=== PATIENT | female | born 1995 | race Hispanic/Latino ===

== ENCOUNTER 2024-03-10 12:50 | Emergency (ER) | payer OTHER, SELFPAY ==
[2024-03-10 12:55] VITALS: BP 114/66; PULSE 88; RESP 16; TEMP 36.9; O2SAT 99; BMI 34.9
[2024-03-10] MEDS: ONDANSETRON 4 MG/2 ML INJ IV (13:28)
[2024-03-10 13:31] LABS: Add Manual Diff / Slide Review NO; Basophils Absolute Auto 0 /uL (0-100); Basophils Percent Auto 0.4 % (0-2); Eosinophils Absolute Auto 100 /uL (0-450); Eosinophils Percent Auto 0.6 % (2-4); Hemoglobin 13.2 g/dL (12.0-16.0); Lymphocytes Absolute Auto 1400 /uL (1100-4500); Mean Corpuscular HGB Conc 33.8 % (30-36); Mean Corpuscular Hemoglobin 29.6 PG (26-34); Mean Corpuscular Volume 87.4 fL (80-100); Monocytes Absolute Auto 700 /uL (0-900); Monocytes Percent Auto 6.8 % (3-14); Neutrophils Absolute Auto 8700 /uL (1500-7000); Neutrophils Percent Auto 79.2 % (50-75); Platelet Count 352 X10^3/uL (150-400); Red Blood Cell Count 4.46 X10^6/uL (4.0-5.2); Red Cell Distribution Width 13.6 % (11.6-14.8)
[2024-03-10 13:34] LABS: Ictotest Urine Negative (Negative)
[2024-03-10 13:42] LABS: Alanine Aminotransferase 22 IU/L (<35); Albumin 4.5 g/dL (3.5-5.0); Albumin Globulin Ratio 1.4 (1.0-2.8); Alkaline Phosphatase 75 U/L (38-126); Aspartate Aminotransferase 24 IU/L (14-36); Bilirubin Total 1.1 mg/dL (0.2-1.3); Blood Urea Nitrogen 15 mg/dL (7-17); Carbon Dioxide 22 mmol/L (22-32); Chloride 106 mmol/L (98-107); Estimated Glomerular Filt Rate > 60 mL/min (>60); Globulin 3.3 g/dL (1.7-4.1); Glucose 100 mg/dL (70-100); HEMOLYSIS < 15 (0-50); Lipase 29 U/L (23-300); Potassium 3.5 mmol/L (3.4-5.1); Sodium 137 mmol/L (137-145); Total Protein 7.8 g/dL (6.3-8.2)
[2024-03-10 13:49] LABS: Bacteria Urine Occasional (0-1); Culture Indicated Urine Cult Not Indicated; Mucus Urine 1+ (Negative); RBC Urine 1-5/HPF (0-5/HPF); Squamous Epithelial Cell Urine 1-5 /HPF (0-5/HPF); Urine Volume 10mL (spun); WBC Urine 1-5/HPF (0-5/HPF)
[2024-03-10 15:30] VITALS: BP 107/72; PULSE 80; RESP 18; O2SAT 99
--- NOTE | 2024-03-23 13:43 | ED_ITS ---
HPI - Nausea/Vomiting/Diarrhea <Manjula Reyes PA-C - Last Filed: 03/23/24 14:23> General Chief complaint: Nausea/Vomiting/Diarrhea Stated complaint: Vomiting, chills, body aches Time Seen by Provider: 03/10/24 15:06 Source: patient Mode of arrival: Family Vehicle History of Present Illness HPI Narrative: 28-year-old female presents to the ED with 1 day of abdominal pain, nausea, vomiting, body aches. Patient states that she had some food from [facility] last night, following which the symptoms started. Patient denies fever, chest pain, shortness of breath, dysuria, lightheadedness, dizziness, syncope. Related Data Previous Rx's Medication Instructions Recorded ondansetron 4 mg disintegrating 4 mg PO Q8H PRN nausea and 03/10/24 tablet vomiting #10 tabs Allergies Allergy/AdvReac Type Severity Reaction Status Date / Time No Known Drug Allergies Allergy Verified 03/10/24 13:25 Review of Systems <Manjula Reyes PA-C - Last Filed: 03/23/24 14:23> Constitutional Constitutional: Reports chills, Denies fatigue, Denies fever(s), Denies frequent falls, Denies lethargy and Denies weakness Eyes Eyes: Denies change in vision, Denies eye discharge, Denies irritation and Denies loss of vision ENT Ears, Nose, Mouth, and Throat: Denies change in voice, Denies dizziness, Denies neck pain, Denies sore throat and Denies throat swelling Cardiovascular Cardiovascular: Denies chest pain, Denies irregular heart rhythm, Denies lightheadedness, Denies palpitations, Denies dyspnea, Denies dyspnea on exertion and Denies orthopnea Respiratory Respiratory: Denies cough, Denies dyspnea, Denies dyspnea on exertion and Denies wheezing Gastrointestinal Gastrointestinal: Reports abdominal pain, Denies change in bowel habits, Denies diarrhea, Reports nausea and Reports vomiting Musculoskeletal Musculoskeletal: Denies neck pain and Denies numbness Integumentary/Breasts Skin/Breast: Denies pruritus, Denies erythema, Denies rash and Denies wounds Neurologic Neurologic: Denies behavioral changes, Denies confusion, Denies dizziness, Denies frequent falls, Denies loss of vision, Denies numbness and Denies weakness Psychiatric Psychiatric: Denies anxiety, Denies behavioral changes, Denies confusion, Denies depression, Denies homicidal ideation and Denies suicidal ideation Endocrine Endocrine: Denies fatigue, Denies flushing and Denies palpitations Hematologic/Lymphatic Hematologic/Lymphatic: Denies easy bruising Allergic/Immunologic Allergic/Immunologic: Denies urticaria, Denies throat swelling and Denies wheezing Exam <Manjula Reyes PA-C - Last Filed: 03/23/24 14:23> Narrative Exam Narrative: Const General:?cooperative, healthy appearing and comfortable [facility] Head:?normal to inspection Ears:?hearing grossly normal bilaterally Nose:?external nose normal Face and sinus:?normal facial exam and sinuses nontender Mouth:?oral mucosae normal Throat:?posterior oropharynx normal Eyes General:?appearance normal, both eyes and all related structures Neck Neck:?normal visual inspection and no lymphadenopathy noted Resp Effort & Inspection:?normal respiratory effort Auscultation:?clear to auscultation bilaterally Cardio Rate:?regular rate Rhythm:?regular rhythm GI Abdomen is soft, nondistended, nontender to palpation. Neuro General:?patient alert, patient awake and patient oriented x3 Initial Vital Signs Initial Vital Signs: Vital Signs Temperature 98.5 F 03/10/24 12:55 Pulse Rate 88 03/10/24 12:55 Respiratory Rate 16 03/10/24 12:55 Blood Pressure 114/66 03/10/24 12:55 Pulse Oximetry 99 03/10/24 12:55 Oxygen Delivery Method Room Air 03/10/24 12:55 <Marga Wadsworth DO - Last Filed: 03/25/24 07:15> Initial Vital Signs Initial Vital Signs: Vital Signs Temperature 98.5 F 03/10/24 12:55 Pulse Rate 88 03/10/24 12:55 Respiratory Rate 16 03/10/24 12:55 Blood Pressure 114/66 03/10/24 12:55 Pulse Oximetry 99 03/10/24 12:55 Oxygen Delivery Method Room Air 03/10/24 12:55 Course <Manjula Reyes PA-C - Last Filed: 03/23/24 14:23> Orders Ordered: Discontinued Medications Ondansetron HCl (Ondansetron 4 Mg/2 Ml Inj) 4 mg IV NOW PRN PRN Reason: Nausea And Vomiting Last Admin: 03/10/24 13:28 Dose: 4 mg Documented By: SB Ondansetron HCl (Ondansetron 4 Mg Odt) 4 mg PO NOW PRN PRN Reason: Nausea And Vomiting <Marga Wadsworth DO - Last Filed: 03/25/24 07:15> Orders Ordered: Discontinued Medications Ondansetron HCl (Ondansetron 4 Mg/2 Ml Inj) 4 mg IV NOW PRN PRN Reason: Nausea And Vomiting Last Admin: 03/10/24 13:28 Dose: 4 mg Documented By: SB Ondansetron HCl (Ondansetron 4 Mg Odt) 4 mg PO NOW PRN PRN Reason: Nausea And Vomiting MDM - Nausea/Vomiting/Diarrhea <Manjula Reyes PA-C - Last Filed: 03/23/24 14:23> Lab Data 03/10/24 13:15 03/10/24 13:15 Labs: Lab Results 03/10/24 03/10/24 Range/Units 13:10 13:15 WBC 11.0 (4.5-11.0) X10^3/uL RBC 4.46 (4.0-5.2) X10^6/uL Hgb 13.2 (12.0-16.0) g/dL Hct 39.0 (36-46) % MCV 87.4 (80-100) fL MCH 29.6 (26-34) PG MCHC 33.8 (30-36) % RDW 13.6 (11.6-14.8) % Plt Count 352 (150-400) X10^3/uL Neut % (Auto) 79.2 H (50-75) % Lymph % (Auto) 13.0 L (25-40) % [place] % (Auto) 6.8 (3-14) % Eos % (Auto) 0.6 L (2-4) % Baso % (Auto) 0.4 (0-2) % Neut # (Auto) 8700 H (1752-4175) /uL Lymph # (Auto) 1400 (4305-4135) /uL [place] # (Auto) 700 (0-900) /uL Eos # (Auto) 100 (0-450) /uL Baso # (Auto) 0 (0-100) /uL Sodium 137 (137-145) mmol/L Potassium 3.5 (3.4-5.1) mmol/L Chloride 106 (98-107) mmol/L Carbon Dioxide 22 (22-32) mmol/L BUN 15 (7-17) mg/dL Creatinine 0.60 (0.52-1.04) mg/dL Estimated GFR > 60 (>60) mL/min BUN/Creatinine Ratio 25.0 H (6-22) Glucose 100 (70-100) mg/dL Calcium 9.0 (8.4-10.2) mg/dL Total Bilirubin 1.1 (0.2-1.3) mg/dL AST 24 (14-36) IU/L ALT 22 (<35) IU/L Alkaline Phosphatase 75 (38-126) U/L Total Protein 7.8 (6.3-8.2) g/dL Albumin 4.5 (3.5-5.0) g/dL Globulin 3.3 (1.7-4.1) g/dL Albumin/Globulin Ratio 1.4 (1.0-2.8) Lipase 29 (23-300) U/L Ur Bilirubin Confirm Negative (Negative) Urine RBC 1-5/hpf (0-5/HPF) Urine WBC 1-5/hpf (0-5/HPF) Ur Squamous Epith Cells 1-5 /hpf (0-5/HPF) Urine Bacteria Occasional (0-1) (None) Urine Mucus 1+ H (Negative) Ur Culture Indicated? Cult not indicated Vol Urine Centrifuged 10ml (spun) Point of Care Testing Test Results Negative Urine Dip Bedside Urine Glucose Negative Bedside Urine Bilirubin + 1 Bedside Urine Ketone +/- 5 Urine Specific [place] 1.025 Bedside Urine Occult Blood - Negative Bedside Urine pH 6.0 Bedside Urine Protein +/- 15 Bedside Urine Urobilinogen - Negative Bedside Urine Nitrite - Negative Bedside Urine Leukocytes + 70 Esterase MDM Narrative Medical decision making narrative: 28-year-old female presents to the ED with 1 day of abdominal pain, nausea, vomiting, body aches. Labs within normal limits. Urine is negative. UA shows positive leuks, however patient is not symptomatic. Patient's symptoms most consistent with gastroenteritis. Patient's nausea responded well to Zofran. Recommend patient continue Zofran as needed at home. Recommend good hydration. Brat diet if diarrhea. Recommend follow-up with PCP. ED return precautions discussed with patient. Patient verbalized understanding. Medical records reviewed: Yes <Marga Wadsworth DO - Last Filed: 03/25/24 07:15> Lab Data Labs: Lab Results 03/10/24 03/10/24 Range/Units 13:10 13:15 WBC 11.0 (4.5-11.0) X10^3/uL RBC 4.46 (4.0-5.2) X10^6/uL Hgb 13.2 (12.0-16.0) g/dL Hct 39.0 (36-46) % MCV 87.4 (80-100) fL MCH 29.6 (26-34) PG MCHC 33.8 (30-36) % RDW 13.6 (11.6-14.8) % Plt Count 352 (150-400) X10^3/uL Neut % (Auto) 79.2 H (50-75) % Lymph % (Auto) 13.0 L (25-40) % [place] % (Auto) 6.8 (3-14) % Eos % (Auto) 0.6 L (2-4) % Baso % (Auto) 0.4 (0-2) % Neut # (Auto) 8700 H (8513-9677) /uL Lymph # (Auto) 1400 (7228-0640) /uL [place] # (Auto) 700 (0-900) /uL Eos # (Auto) 100 (0-450) /uL Baso # (Auto) 0 (0-100) /uL Sodium 137 (137-145) mmol/L Potassium 3.5 (3.4-5.1) mmol/L Chloride 106 (98-107) mmol/L Carbon Dioxide 22 (22-32) mmol/L BUN 15 (7-17) mg/dL Creatinine 0.60 (0.52-1.04) mg/dL Estimated GFR > 60 (>60) mL/min BUN/Creatinine Ratio 25.0 H (6-22) Glucose 100 (70-100) mg/dL Calcium 9.0 (8.4-10.2) mg/dL Total Bilirubin 1.1 (0.2-1.3) mg/dL AST 24 (14-36) IU/L ALT 22 (<35) IU/L Alkaline Phosphatase 75 (38-126) U/L Total Protein 7.8 (6.3-8.2) g/dL Albumin 4.5 (3.5-5.0) g/dL Globulin 3.3 (1.7-4.1) g/dL Albumin/Globulin Ratio 1.4 (1.0-2.8) Lipase 29 (23-300) U/L Ur Bilirubin Confirm Negative (Negative) Urine RBC 1-5/hpf (0-5/HPF) Urine WBC 1-5/hpf (0-5/HPF) Ur Squamous Epith Cells 1-5 /hpf (0-5/HPF) Urine Bacteria Occasional (0-1) (None) Urine Mucus 1+ H (Negative) Ur Culture Indicated? Cult not indicated Vol Urine Centrifuged 10ml (spun) Point of Care Testing Test Results Negative Urine Dip Bedside Urine Glucose Negative Bedside Urine Bilirubin + 1 Bedside Urine Ketone +/- 5 Urine Specific [place] 1.025 Bedside Urine Occult Blood - Negative Bedside Urine pH 6.0 Bedside Urine Protein +/- 15 Bedside Urine Urobilinogen - Negative Bedside Urine Nitrite - Negative Bedside Urine Leukocytes + 70 Esterase Discharge Plan Departure Patient Disposition: Home Clinical Impression: Gastroenteritis Instructions: DI for Viral Gastroenteritis -- Adult Activity Restrictions/Additional Instructions: Were evaluated in the ED today for nausea, vomiting, diarrhea. Labs and urine were normal. It appears that your symptoms are most likely due to food poisoning/gastroenteritis. Your symptoms significantly improved with the Zofran. You are being prescribed Zofran to take at home as needed for nausea. You may continue to have diarrhea for the next several days. Please continue to stay well hydrated with water and Gatorade. A BRAT diet that consists of bananas, rice, apples, toast is recommended for diarrhea. Please follow-up with your PCP as soon as possible. Return to the ED if you have worsening symptoms. Prescriptions: New ondansetron 4 mg tablet,disintegrating 4 mg PO Q8H PRN (Reason: nausea and vomiting) Qty: 10 0RF Stand Alone Forms: Patient Portal/API/Survey ED Sign-out <Marga Wadsworth DO - Last Filed: 03/25/24 07:15> Cosign ED Attending Cosignature Attestation: I was immediately available in the department for consultation.
== END 2024-03-10 15:30 | disposition home or self-care (01) ==
PROVIDERS: Emergency Medicine; Emergency Provider Student in an Organized Health Care Education/Training Program
DX: K52.9 Noninfective gastroenteritis and colitis, unspecified (principal); R11.2 Nausea with vomiting, unspecified
CPT/HCPCS: 36415; 80053; 81003; 81015; 81025; 83690; 85025; 96374; 99284; J2405

== ENCOUNTER 2024-04-01 12:20 | Emergency (ER) | payer OTHER, SELFPAY ==
[2024-04-01] VITALS (10 sets, daily range): BP systolic 102–125; BP diastolic 58–63; PULSE 105–122; RESP 28; TEMP 37–38.4; O2SAT 98–100; BMI 34.0
--- NOTE | 2024-04-01 12:38 | DI.RAD.S_ITS ---
PROCEDURE: XR CHEST 1V INDICATIONS: Shortness of breath TECHNIQUE: One view of the chest was acquired. COMPARISON: None. FINDINGS: Surgical changes and devices: None. Lungs and pleura: Lungs are clear. No pleural effusions or pneumothorax. Mediastinum: Mediastinal contours appear normal. Heart size is normal. Bones and chest wall: No suspicious bony lesions. Overlying soft tissues appear unremarkable. IMPRESSION: No acute cardiopulmonary abnormality is seen. Dictated by: Remington Méndez M.D. on 04/01/2024 at 13:40 Approved by: Remington Méndez M.D. on 04/01/2024 at 13:40
[2024-04-01] MEDS: ONDANSETRON 4 MG ODT SL (12:39)
[2024-04-01] MEDS: IBUPROFEN 400 MG TABLET 800 MG PO (12:39)
[2024-04-01] MEDS: ACETAMINOPHEN 325 MG TABLET 975 MG PO (12:39)
--- NOTE | 2024-04-01 12:39 | EKG_ITS ---
[address] [address] Test Date: 2024-04-01 Pat Name: Ibeth Rothepartment: Room: Gender: Female Applications Support Specialist: [place] : 1995 Requested By: Order Number: [id number] Reading MD: Tomás Larson MD Measurements Intervals [place] Rate: 108 P: -1 NH: 144 QRS: 51 QRSD: 86 T: 42 QT: 348 QTc: 466 Interpretive Statements Sinus tachycardia Electronically Signed On 04-02-2024 7:36:43 PST by Tomás Larson MD
[2024-04-01] MEDS: ALBUTEROL 2.5 MG/3 ML NEB (ADULT) 10 MG INH (12:56)
[2024-04-01 13:11] LABS: Add Manual Diff / Slide Review NO; Basophils Absolute Auto 100 /uL (0-100); Basophils Percent Auto 0.9 % (0-2); Eosinophils Absolute Auto 100 /uL (0-450); Eosinophils Percent Auto 1.1 % (2-4); Hematocrit 36.9 % (36-46); Hemoglobin 12.6 g/dL (12.0-16.0); Lymphocytes Absolute Auto 1000 /uL (1100-4500); Lymphocytes Percent Auto 8.3 % (25-40); Mean Corpuscular HGB Conc 34.2 % (30-36); Mean Corpuscular Hemoglobin 29.4 PG (26-34); Mean Corpuscular Volume 86.1 fL (80-100); Monocytes Absolute Auto 900 /uL (0-900); Monocytes Percent Auto 7.4 % (3-14); Neutrophils Absolute Auto 10100 /uL (1500-7000); Neutrophils Percent Auto 82.3 % (50-75); Platelet Count 334 X10^3/uL (150-400); Red Blood Cell Count 4.28 X10^6/uL (4.0-5.2); Red Cell Distribution Width 13.7 % (11.6-14.8); White Blood Cell Count 12.2 X10^3/uL (4.5-11.0)
[2024-04-01 13:19] LABS: Pregnancy Test Serum,Qual Negative (Negative)
[2024-04-01 13:20] LABS: Alanine Aminotransferase 25 IU/L (<35); Albumin 4.4 g/dL (3.5-5.0); Albumin Globulin Ratio 1.3 (1.0-2.8); Alkaline Phosphatase 71 U/L (38-126); Aspartate Aminotransferase 28 IU/L (14-36); BUN Creatinine Ratio 16.1 (6-22); Bilirubin Total 0.7 mg/dL (0.2-1.3); Blood Urea Nitrogen 9 mg/dL (7-17); Calcium 9.2 mg/dL (8.4-10.2); Carbon Dioxide 16 mmol/L (22-32); Chloride 107 mmol/L (98-107); Estimated Glomerular Filt Rate > 60 mL/min (>60); Globulin 3.5 g/dL (1.7-4.1); Glucose 118 mg/dL (70-100); HEMOLYSIS < 15 (0-50); Lactate (Lactic Acid) 1.5 mmol/L (0.7-2.1); Potassium 3.8 mmol/L (3.4-5.1); Sodium 137 mmol/L (137-145); Total Protein 7.9 g/dL (6.3-8.2)
--- NOTE | 2024-04-01 13:36 | ED_ITS ---
HPI - SOB/Dyspnea General Chief Complaint: Shortness of Breath/Dyspnea Stated Complaint: SOB flu diagnosis, chest pain, headache, chills Time Seen by Provider: 04/01/24 12:49 Source: patient Mode of arrival: Ambulatory Limitations: no limitations History of Present Illness HPI Narrative: Patient here with mother. Complains of shortness of breath fever body aches chills. Patient has history of asthma. Does not smoke. Patient symptoms started this past Saturday. Seen by [facility] urgent care yesterday and started on Tamiflu. Related Data Previous Rx's Medication Instructions Recorded ondansetron 4 mg disintegrating 4 mg PO Q8H PRN nausea and 03/10/24 tablet vomiting #10 tabs benzonatate 100 mg capsule 100 mg PO TID PRN cough #20 caps 04/01/24 methylprednisolone 4 mg tablets in See Rx Instructions PO .COMPLEX 04/01/24 a dose pack (Medrol (Sree)) #21 ea Allergies Allergy/AdvReac Type Severity Reaction Status Date / Time No Known Drug Allergies Allergy Verified 03/10/24 13:25 Review of Systems Review of Systems Narrative: GENERAL: Positive chills, fatigue, malaise, fever, sweats. HEENT: Negative sinus pain, ear pain, sore throat RESPIRATORY: Positive dyspnea, cough CARDIOVASCULAR: Negative chest pain, palpitations GASTROINTESTINAL: Negative nausea, vomiting, abdominal pain : Negative dysuria, frequency, hematuria MUSCULOSKELETAL: Positive muscle or bony pain SKIN: Negative rash, skin lesions NEUROLOGIC: Negative weakness, numbness ROS Unobtainable: All systems reviewed & are unremarkable except as noted in HPI and below Patient History Social History Smoking Status: Never smoker Smoking Status: Never smoker Exam Narrative Exam Narrative: GENERAL: in no distress, not toxic not dyspneic HEAD: Normocephalic. EYES: Pupils equal round ENT: Mucous membranes moist. NECK: Trachea midline. CARDIOVASCULAR: Regular rate and rhythm RESPIRATORY: Patient is speaking comfortably in full sentences however there is bilateral basilar mild wheezing and diminished lung sounds. No rhonchi INR rales. Patient in no respiratory distress. GASTROINTESTINAL: Abdomen soft, non-tender EXTREMITIES: No gross deformities. BACK: No flank tenderness. NEURO: AOx4. Clear speech SKIN: Warm and dry PSYCH: Not anxious, is cooperative Initial Vital Signs Initial Vital Signs: Vital Signs Temperature 101.2 F H 04/01/24 12:29 Pulse Rate 118 H 04/01/24 12:29 Respiratory Rate 28 H 04/01/24 12:29 Blood Pressure 125/58 L 04/01/24 12:29 Pulse Oximetry 100 04/01/24 12:29 Oxygen Delivery Method Room Air 04/01/24 12:29 Course Orders Ordered: Discontinued Medications Acetaminophen (Acetaminophen 325 Mg Tablet) 975 mg PO NOW ONE Stop: 04/01/24 12:33 Last Admin: 04/01/24 12:39 Dose: 975 mg Documented By: AWA Albuterol (Albuterol 2.5 Mg/3 Ml Neb (Adult)) 10 mg INH NOW ONE Stop: 04/01/24 12:46 Last Admin: 04/01/24 12:56 Dose: 10 mg Documented By: PACO Sodium Chloride (Normal Saline 0.9%) 1,000 mls @ 1,000 mls/hr IV BOLUS ONE Stop: 04/01/24 14:38 Last Infusion: 04/01/24 14:57 Dose: Infused Documented By: Admin: 04/01/24 13:52 Dose: 1,000 mls/hr Documented By: AWA Ibuprofen (Ibuprofen 400 Mg Tablet) 800 mg PO NOW ONE Stop: 04/01/24 12:33 Last Admin: 04/01/24 12:39 Dose: 800 mg Documented By: AWA Methylprednisolone (Methylprednisolone 125 Mg/2 Ml Vial) 125 mg IV NOW ONE Stop: 04/01/24 13:37 Last Admin: 04/01/24 13:53 Dose: 125 mg Documented By: AWA Ondansetron HCl (Ondansetron 4 Mg/2 Ml Inj) 4 mg IV NOW PRN PRN Reason: Nausea And Vomiting Ondansetron HCl (Ondansetron 4 Mg Odt) 4 mg SL NOW PRN PRN Reason: Nausea And Vomiting Last Admin: 04/01/24 12:39 Dose: 4 mg Documented By: AWA Vital Signs Vital signs: Vital Signs - 8 hr 04/01/24 12:29 04/01/24 12:52 04/01/24 12:58 Temperature 101.2 F H Pulse Rate 118 H 108 H 114 H Respiratory Rate 28 H 28 H Blood Pressure 125/58 L Pulse Oximetry 100 100 100 Oxygen Delivery Method Room Air Room Air 04/01/24 13:00 Temperature Pulse Rate 121 H Respiratory Rate Blood Pressure Pulse Oximetry 100 Oxygen Delivery Method MDM - SOB/Dyspnea Lab Data 04/01/24 12:58 04/01/24 12:58 Labs: Lab Results 04/01/24 Range/Units 12:58 WBC 12.2 H (4.5-11.0) X10^3/uL RBC 4.28 (4.0-5.2) X10^6/uL Hgb 12.6 (12.0-16.0) g/dL Hct 36.9 (36-46) % MCV 86.1 (80-100) fL MCH 29.4 (26-34) PG MCHC 34.2 (30-36) % RDW 13.7 (11.6-14.8) % Plt Count 334 (150-400) X10^3/uL Neut % (Auto) 82.3 H (50-75) % Lymph % (Auto) 8.3 L (25-40) % [place] % (Auto) 7.4 (3-14) % Eos % (Auto) 1.1 L (2-4) % Baso % (Auto) 0.9 (0-2) % Neut # (Auto) 49958 H (5172-8878) /uL Lymph # (Auto) 1000 L (9123-9179) /uL [place] # (Auto) 900 (0-900) /uL Eos # (Auto) 100 (0-450) /uL Baso # (Auto) 100 (0-100) /uL Sodium 137 (137-145) mmol/L Potassium 3.8 (3.4-5.1) mmol/L Chloride 107 (98-107) mmol/L Carbon Dioxide 16 L (22-32) mmol/L BUN 9 (7-17) mg/dL Creatinine 0.56 (0.52-1.04) mg/dL Estimated GFR > 60 (>60) mL/min BUN/Creatinine Ratio 16.1 (6-22) Glucose 118 H (70-100) mg/dL Lactate 1.5 (0.7-2.1) mmol/L Calcium 9.2 (8.4-10.2) mg/dL Total Bilirubin 0.7 (0.2-1.3) mg/dL AST 28 (14-36) IU/L ALT 25 (<35) IU/L Alkaline Phosphatase 71 (38-126) U/L Troponin I Cancelled NT-Pro-B Natriuret Pep Cancelled Total Protein 7.9 (6.3-8.2) g/dL Albumin 4.4 (3.5-5.0) g/dL Globulin 3.5 (1.7-4.1) g/dL Albumin/Globulin Ratio 1.3 (1.0-2.8) Serum , Qual Negative (Negative) Imaging Data Chest x-ray: Radiologist's Impression: [address] [address] XRay Report Signed Patient: Ibeth Peterson MR#: [id number] : 1995 Acct:[id number] Age/Sex: 28 / F Date of Service: 04/01/24 Loc: ED Accession Number: [id number] Procedure: XR chest 1V Ordering Provider: Alex Potts MD PROCEDURE: XR CHEST 1V INDICATIONS: Shortness of breath TECHNIQUE: One view of the chest was acquired. COMPARISON: None. FINDINGS: Surgical changes and devices: None. Lungs and pleura: Lungs are clear. No pleural effusions or pneumothorax. Mediastinum: Mediastinal contours appear normal. Heart size is normal. Bones and chest wall: No suspicious bony lesions. Overlying soft tissues appear unremarkable. IMPRESSION: No acute cardiopulmonary abnormality is seen. Dictated by: Remington Méndez M.D. on 04/01/2024 at 13:40 Approved by: Remington Méndez M.D. on 04/01/2024 at 13:40 [facility] Narrative Medical decision making narrative: Patient here with mother. Complains of shortness of breath fever body aches chills. Patient has history of asthma. Does not smoke. Patient symptoms started this past Saturday. Seen by [facility] urgent care yesterday and started on Tamiflu. After history and exam, ibuprofen Tylenol ordered. Solu-Medrol breathing treatment chest x-ray CBC CMP lactic acid [facility] Medical records reviewed: Differential considered: Includes but not limited to pneumonia bronchitis influenza asthma exacerbation Lab Test results independently reviewed as above. Pertinent findings: WBC 12.2 hemoglobin 12.6 lactic acid 1.5 sodium 137 potassium 3.8 BUN 9 creatinine 0.56 negative Independently reviewed EKG sinus tachycardia rate 108 otherwise normal EKG Imaging studies independently reviewed: Chest x-ray no acute finding Consultations: None indicated at this time. Treatments: Tylenol ibuprofen Solu-Medrol nebulizer Re-evaluations: 2:00 p.m.. Patient feeling much better after IV fluids Solu- Medrol. Improved lung sounds. She does desire discharge home. Reviewed exam and laboratory studies results with her. Mother at bedside. Medrol Dosepak will be provided. Work note provided. She will continue her home breathing treatments and Tamiflu. She desires discharge home after IV fluids here. Discussion: Appropriate for discharge home. Exam is reassuring. Return precautions reviewed with patient. Patient not requiring supplemental oxygen. Patient feeling much better after Solu-Medrol IV fluids and breathing treatment. She does have family doctor to follow up with. She desires discharge home. Patient not requiring supplemental oxygen. Heart rate likely due to fever as well as receiving breathing treatment here. Improved lung sounds. Patient is speaking full sentences comfortably. No respiratory distress. No D-dimer indicated at this time. Clinically not pulmonary embolism. Tachycardia noted likely due to viral infection and asthma exacerbation Diagnosis: Asthma exacerbation Discharge Plan Departure Patient Disposition: Home Clinical Impression: Asthma with exacerbation Qualifiers: Asthma severity: unspecified severity Asthma persistence: unspecified Qualified Code(s): J45.901 - Unspecified asthma with (acute) exacerbation Instructions: DI for Asthma -- Adult Activity Restrictions/Additional Instructions: Your asthma exacerbation episode likely triggered by the infection with flu. Please continue home asthma medications and the Tamiflu. Continue steroid pack tomorrow. Keep well hydrated. Return if worse if any questions or concerns. Prescriptions: New benzonatate 100 mg capsule 100 mg PO TID PRN (Reason: cough) Qty: 20 0RF methylprednisolone [Medrol (Sree)] 4 mg tablets,dose pack See Rx Instructions .ROUTE .COMPLEX Qty: 21 0RF Rx Instructions: orally per package directions No Action ondansetron 4 mg tablet,disintegrating 4 mg PO Q8H PRN (Reason: nausea and vomiting) Qty: 10 0RF Stand Alone Forms: Patient Portal/API/Survey, Work Release Note
[2024-04-01] MEDS: SODIUM CHLORIDE 0.9% 1,000 ML 1000 ML IV (13:52)
[2024-04-01] MEDS: methylPREDNISolone 125 MG/2 ML VIAL IV (13:53)
== END 2024-04-01 15:00 | disposition home or self-care (01) ==
PROVIDERS: Emergency Provider Emergency Medicine
DX: J45.901 Unspecified asthma with (acute) exacerbation (principal); R00.0 Tachycardia, unspecified; R50.9 Fever, unspecified
CPT/HCPCS: 36415; 71045; 80053; 83605; 84703; 85025; 93005; 93010; 94640; 96361; 96374; 99284; J2919; J7613